=== PATIENT | female | born 1975 | race Caucasian/White ===

== ENCOUNTER 2018-12-18 09:30 | Outpatient (CLI) | payer BC | END 2018-12-18 10:00 | disposition home or self-care (01) | LOC: D.MAMMO 09:30 | PROVIDERS: ATTEND Family Medicine | DX: Z12.31 Encounter for screening mammogram for malignant neoplasm of breast (principal) ==

== ENCOUNTER 2020-05-22 06:00 | Day surgery (SDC) | payer BC, OTHER ==
[2020-05-19 12:33] LABS: HEMATOCRIT 39.9 % (36.0-48.0); HEMOGLOBIN 14.1 g/dL (12-16); MCH 30.9 pg (26.0-34.0); MCHC 35.3 g/dL (31.0-37.0); MCV 87.3 fL (80.0-100.0); RBC 4.57 10x6/uL (4.00-5.40); RDW 14.1 % (11.5-14.5)
[~2020-05-22] VITALS: Ht 175.3 cm; Wt 118.2 kg
[~2020-05-22 06:00] MED LIST: NEXIUM40 MG PO
[2020-05-22 06:21] VITALS: BP 130/76; Ht 175.3 cm; Wt 118.2 kg
--- NOTE | 2020-05-22 06:37 | NUR ---
IV STARTED IN RIGHT FA. 20 GAUGE IV CATH. CDI
--- NOTE | 2020-05-22 15:16 | NUR ---
UNEVENTFUL RECOVERY. IV D/C'D WITH CANNULA INTACT, PRESSURE HELD AND DRSG PLACED. DISCHARGE INSTRUCTIONS GIVEN AND PT VERBALIZED AN UNDERSTANDING. AMBULATES EASILY WITH WALKER, HAS CANE AT HOME. DISCHARGED HOME WITHOUT C/O
--- NOTE | 2020-05-23 07:53 | OP ---
PATIENT NAME: VIVIANA CHAUHAN MEDICAL RECORD: [id number] :73 LOCATION:[facility] ADMISSION DATE: SURGEON: LOR SEO MD DATE OF OPERATION: 05/22/2020 PREOPERATIVE DIAGNOSES: 1. Left knee pain. 2. Chondromalacia. 3. Medial and lateral meniscus tears. 4. Retained hardware, left patella. POSTOPERATIVE DIAGNOSES: 1. Left knee pain. 2. Chondromalacia. 3. Medial and lateral meniscus tears. 4. Retained hardware, left patella. PROCEDURE PERFORMED: 1. Left knee scope with partial medial and lateral meniscectomy, chondroplasty, and limited synovectomy. 2. Attempted hardware removal, left patella. INDICATIONS: Ms. Butcher is a 44-year-old female with a history of left knee pain. She has been having pain, swelling, and mechanical symptoms for the last several months and the symptoms are getting worse. MRI shows evidence of meniscus tears as well as chondromalacia in the knee. She also has a history of ORIF of the patella years ago. I talked to her about options for conservative versus surgical management. She elected to proceed with surgery for left knee arthroscopy. We also discussed removal of hardware from the patella, in case in the future she may require total knee replacement. She was agreeable to this. Risks, benefits, and alternatives of surgery were discussed with the patient and consent was obtained. DESCRIPTION OF PROCEDURE: The patient was met in the holding area where her identity and confirmation of procedure was performed. Left lower extremity was marked. She was taken to the operating room where she was placed supine on the operating table. Anesthesia was administered. Tourniquet was applied to the left thigh and the left leg was positioned in the leg edmondson. Left lower extremity was then prepped and draped in a sterile fashion. The patient received preoperative antibiotics and timeout was performed prior to initiating the case. Upon initiation of the case, leg was exsanguinated and tourniquet was raised. Total tourniquet time was 109 minutes. We began with a knee arthroscopy. Her superior medial portal was placed. The cannula was inserted. The knee was filled with fluid. We then placed an anterolateral portal, inserted the camera and placed our anterior medial portal under direct visualization. Diagnostic knee arthroscopy was performed. There was extensive synovitis throughout the knee. There is grade III chondromalacia at the undersurface of the patella and the trochlea. The medial compartment showed a grade IV chondromalacia at the medial femoral condyle, grade I-II of the medial tibial plateau. There was also a radial tear in the posterior horn of the medial meniscus. There was scar tissue in the anterior knee and around the ACL. The ACL did not appear to be attached. There did appear to be a stump of ACL adhered to the intercondylar notch tissues. The lateral compartment was in good condition, but did have a small tear in the body of the lateral meniscus. The shaver was used to debride this tear. Tissue from the anterior knee, the OPERATIVE REPORT [id number] VIVIANA CHAUHAN infrapatellar fat pad was also debrided. We then moved to the medial compartment with the biter and shaver and performed a partial medial meniscectomy. Chondroplasty of the medial femoral condyle was also performed. This extended all the way down to the bone along the medial edge of the condyle. Chondroplasty was performed at the undersurface of the patella and the trochlea as well. Before and after images were obtained and this completed our procedure for knee arthroscopy. Instruments were removed and fluid was drained from the knee. We then attempted to perform hardware removal from the screws of the patella. The screw was extended from the superior pole inferiorly. An incision was made at the superior border of the patella. We dissected down through the skin and subcutaneous tissue to the extensor mechanism. Under fluoroscopy, we were then able to identify the screw heads and small longitudinal incisions were made into the quad tendons attachment at these areas. We were then able to isolate the screw heads. We attempted to back the screw out with a screwdriver, but were unsuccessful with multiple screwdrivers. The screw heads were stripped from where the screws were actually placed. The screw heads were nearly flush with the patella. I did not feel it would be beneficial at this time to perform any extensive removal process we therefore elected to abandon this procedure. The wounds were irrigated thoroughly with saline. The quad tendon was repaired with 0 Vicryl suture. Subcutaneous tissue was then closed with Vicryl and the skin was closed with nylon. Portal sites were closed with nylon as well. This completed our procedure. Sterile dressing was placed. The patient was turned back over to anesthesia where she was awakened, extubated, and taken to recovery room in stable condition. POSTOPERATIVE PLAN: The patient is going to return home with her family today. She may be weightbearing as tolerated on the left lower extremity. We will get him started with physical therapy in 2-3 days. Follow up in 2 weeks. COMPLICATIONS: None. ESTIMATED BLOOD LOSS: 10 mL. ANESTHESIA: General with peripheral nerve block. TRANSINT:[id number] Voice Confirmation ID: [id number] DOCUMENT ID: [id number] LOR SEO MD at [id number] CC: [id number] DICTATION DATE: 05/22/202012 GENERAL SERVICE TECHNICIAN: 05/22/20 [id number] [facility] [place] 05/22/20 [id number] [place] [address]
== END 2020-05-22 12:15 | disposition home or self-care (01) ==
LOC: D.OPS 06:00
PROVIDERS: Anesthesiology; ATTEND Orthopaedic Surgery
DX: M25.562 Pain in left knee (principal); M94.262 Chondromalacia, left knee; S83.242A Other tear of medial meniscus, current injury, left knee, initial encounter; S83.282A Other tear of lateral meniscus, current injury, left knee, initial encounter; X58.XXXA Exposure to other specified factors, initial encounter; Z97.8 Presence of other specified devices